=== PATIENT | female | born 1985 | race Caucasian/White ===

== ENCOUNTER 2016-04-17 06:45 | Day surgery (SDC) | payer MEDICAID, OTHER ==
[~2016-04-17 06:45] MED LIST: RINGERS SOLUTION,LACTATED 1,000 ML IV PRN
--- OUTSIDE RECORDS SUMMARY | 2016-04-17 06:49 | XMS REPORT | Continuity of Care Document ---
:1985 Author Organization [facility] ([facility]) Address [address] [place] [address] Phone [phone] Care Team Providers Name Role Phone Deep Collins Primary Care Provider [phone] Source Comments This disclosure is being made pursuant to the Care Everywhere program, applicable federal and state laws, and may not contain all informaitonavailable regarding this patient.[facility] ([facility]) Active Allergies and Adverse Reactions Allergen Noted Date Severity Reactions Comments Ibuprofen Urticaria (Hives) Penicillins Urticaria (Hives) Current Medications Prescription Sig. Disp. Refills Start Date End Date Status VITS Take by mouth. Active W-CA,FE,FA,<1MG, ( VITAMIN PO) ALBUTEROL INH Use by Active inhalation. Active Problems Problem Noted Date Other nonspecific abnormal serum enzyme levels 11/28/2005 Social History Tobacco Use Types Packs/Day Years Used Date Current Every Day Smoker 0.3 9 Alcohol Use Drinks/Week oz/Week Comments No Last Filed Vital Signs Vital Sign Reading Time Taken Blood Pressure 132/67 01/22/2012 11:02 AM [employer] Pulse 106 01/22/2012 11:02 AM [employer] Temperature 36 C (96.8 F) 01/22/2012 11:02 AM [employer] Respiratory Rate - - Height 1.67 m (5' 5.75") 01/22/2012 11:02 AM [employer] Weight 78.2 kg (172 lb 6.4 oz) 01/22/2012 11:02 AM [employer] Body Mass Index 28.04 01/22/2012 11:02 AM [employer] Oxygen Saturation - - Plan of Care Health Maintenance Due Date Last Done Comments Hepatitis B Vaccine (1 of 3 - Primary Series) 1986 Tdap Vaccine 1997 Cervical Cancer Screening 2004 MMR Vaccine 2004 Td Vaccine 2004 Varicella Vaccine (1 of 2 - Adult - No Evidence of 2004 Immunity) Pneumococcal Vaccine (1 of 1 - PPSV23) 2005 Lipid Disorder Screening 11/28/2010 11/28/2005 Influenza Vaccine: Seasonal (#1) 09/24/2015 Results from Last 3 Months Not on file
[2016-04-17] MEDS ORDERED: BUPIVACAINE HCL/EPINEPHRINE 50 ML VIAL IJ ONE ×2 (08:25)
[2016-04-17] MEDS ORDERED: RINGERS SOLUTION,LACTATED 1,000 ML IV ONE (08:45)
[2016-04-17] MEDS ORDERED: oxyCODONE HCL/ACETAMINOPHEN 1 TAB TABLET PO PRN (10:34)
--- NOTE | 2016-04-17 10:47 | OR ---
Operative Report - Dictated Report Narrative: Operative report: 04/17/2016 Preoperative diagnosis: Desires permanent sterilization Postoperative diagnosis: Same Procedure: Laparoscopic bilateral salpingectomies Surgeon: Анна Chandra D.O. Waste Removalist: OR staff Anesthesia: Gen. IV fluids: 1000 Milliliters Urine output: Minimal Milliliters Findings: Normal appearing uterus, tubes, ovaries, bowel, liver edge EBL: Minimal Milliliters Drains: None Pathology: Bilateral fallopian tubes Complications: None Condition: Stable The patient was taken to the operating room. Anesthesia was found to be adequate. The patient was prepped and draped in the normal sterile fashion in the dorsal lithotomy position. A sterile speculum was then inserted into the vagina. The Hulka uterine manipulator was then inserted into the uterus. The speculum was removed. A red rubber was then inserted into the bladder to drain throughout the procedure. Attention was then turned to the abdomen. Local anesthetic was then injected within the umbilicus. A 5 mm skin incision was then made with the scalpel. A hemostat was then used to bluntly dissect down to the fascia. The 5 mm camera was then inserted into the trocar and under direct visualization inserted into the abdomen. The abdomen was then insufflated to 12 mmHg. The abdomen was then surveyed. Normal pelvic anatomy was noted. Attention was then turned to the left lower quadrant, the peritoneum was mapped with local anesthetic, skin incised, subcutaneous tissue bluntly dissected, and a 8 mm trocar entered into the peritoneum under direct visualization. Electrocautery was used to sequentially cauterize, cut, and remove the entire fallopian tube. This was then repeated on the opposite side. The fallopian tubes were then removed under direct visualization and sent to pathology. The pedicles were then cauterized again and inspected and found to be hemostatic. The abdomen was then desufflated. The trochars were removed under direct visualization. The skin incisions were then reapproximated with 4-0 Vicryl, benzoin and Steri-Strips. Band-Aids were then placed. The Hulka uterine manipulator was then removed and sites were hemostatic. The red rubber catheter was then removed. Clear yellow urine was noted throughout the entire procedure. The patient tolerated the procedure well. Sponge, lap, needle, and instrument counts were correct throughout the entire procedure. The patient was taken to the recovery room in stable condition.
[2016-04-17 12:14] VITALS: BP 101/53
== END 2016-04-17 06:46 | disposition home or self-care (01) ==
LOC: AMB 06:45
PROVIDERS: ATTEND Obstetrics & Gynecology Gynecologic Oncology
PROC: 0UT74ZZ Resection of Bilateral Fallopian Tubes, Percutaneous Endoscopic Approach (ICD-10-PCS; principal; 2016-04-17 08:00)
DX: Z30.2 Encounter for sterilization (principal); J45.909 Unspecified asthma, uncomplicated; F17.200 Nicotine dependence, unspecified, uncomplicated; Z68.33 Body mass index [BMI] 33.0-33.9, adult